=== PATIENT | female | born 1935 | race Caucasian/White ===

== ENCOUNTER → 2025-03-31 11:14 | Outpatient (REF) | payer OTHER, SELFPAY | LOC: HWRCS 11:14 | PROVIDERS: ATTENDING PHYSICIAN Internal Medicine Cardiovascular Disease; FAMILY PHYSICIAN Student in an Organized Health Care Education/Training Program | DX: Z95.5 Presence of coronary angioplasty implant and graft (principal) | CPT/HCPCS: 93306 ==